=== PATIENT | male | born 1940 | race Caucasian/White ===

== ENCOUNTER 2018-11-17 13:18 | Observation (INO) | payer OTHER ==
--- NOTE | 2018-11-17 13:30 | PDOC ---
History of Present Illness - General Chief Complaint: Syncope/Near Syncope Stated Complaint: Syncope/Near Syncope Time Seen by Provider: 11/17/18 13:23 - History of Present Illness Initial Comments: 11/17/18 13:32 Mr. Olsen is an 78 yo male w/ no known pmh who presents for evaluation after syncopal episode earlier today. Patient reports he was in his previous state of health until he had some stomach pain with diarrhea and large bowel movement. Patient had syncopal episode preceded by some room spinning while on the toilet and was found by . Did not hit his head or otherwise fall. Currently alert and oriented. No interventions done via EMS. Patient reports he feels his normal self at this time. The patient denies chest pain, shortness of breath, and headache. Denies fever, chills, nausea, vomit, and constipation. Denies dysuria, frequency, urgency and hematuria. Past History - Past Medical History Allergies/Adverse Reactions: Allergies Allergy/AdvReac Type Severity Reaction Status Date / Time No Known Allergies Allergy Unverified 11/17/18 13:33 Home Medications: Ambulatory Orders Dutasteride/Tamsulosin HCl [Demetrice 0.5-0.4 Mg Capsule] 1 each PO 11/18/13 Review of Systems - Review of Systems Comments:: 11/17/18 13:36 GENERAL/CONSTITUTIONAL: No fever or chills. No weakness. HEAD, EYES, EARS, NOSE AND THROAT: No change in vision. No ear pain or discharge. No sore throat. CARDIOVASCULAR: No chest pain or shortness of breath RESPIRATORY: No cough, wheezing, or hemoptysis. GASTROINTESTINAL: No nausea, vomiting, diarrhea or constipation. GENITOURINARY: No dysuria, frequency, or change in urination. MUSCULOSKELETAL: No joint or muscle swelling or pain. No neck or back pain. SKIN: No rash NEUROLOGIC: +Dizziness w/ syncopal episode as described. No headache, or change in strength/sensation. ENDOCRINE: No increased thirst. No abnormal weight change HEMATOLOGIC/LYMPHATIC: No anemia, easy bleeding, or history of blood clots. ALLERGIC/IMMUNOLOGIC: No hives or skin allergy. *Physical Exam - Physical Exam Comments: 11/17/18 13:36 GENERAL: Awake, alert, and fully oriented, in no acute distress HEAD: No signs of trauma, normocephalic, atraumatic EYES: PERRLA, EOMI, sclera anicteric, conjunctiva clear ENT: Auricles normal inspection, hearing grossly normal, nares patent, oropharynx clear without exudates. Moist mucosa NECK: Normal ROM, supple, no lymphadenopathy, JVD, or masses LUNGS: No distress, speaks full sentences, clear to auscultation bilaterally HEART: Regular rate and rhythm, normal S1 and S2, no murmurs, rubs or gallops, peripheral pulses normal and equal bilaterally. ABDOMEN: Soft, nontender, normoactive bowel sounds. No guarding, no rebound. No masses EXTREMITIES: Normal inspection, Normal range of motion, no edema. No clubbing or cyanosis. NEUROLOGICAL: Cranial nerves II through XII grossly intact. Normal speech, normal gait, no focal sensorimotor deficits SKIN: Warm, Dry, normal turgor, no rashes or lesions noted. Heart Score/ECG Review - History History: Highly suspicious - Electrocardiogram EKG: Normal - Age Age: >/= 65 - Risk Factors Risk Factors Heart Score: No Hx Hypercholesterolemia, No Hx Hypertension, No Hx Diabetes, No Smoking History, No Positive family hx of cardiac disease, No Hx Obesity Based on the list above the patient has:: No risk factors known - Troponin Troponin: </= normal limit - Score Heart Score - Total: 4 ED Treatment Course - LABORATORY CBC & Chemistry Diagram: 11/17/18 13:45 11/17/18 13:45 Medical Decision Making - Medical Decision Making 11/17/18 15:23 Mr. Olsen is an 78 yo male w/ no pmh who presents for evaluation of symptoms of syncope. Patient evaluated with labs as below as well as EKG and CXR. Patient labs grossly wnl as below. EKG significant for mild bradycardia only. Will admit patient for observation and cardiology evaluation. Laboratory Results - last 24 hr 11/17/18 11/17/18 13:45 13:45 WBC 6.4 RBC 4.77 Hgb 14.1 Hct 43.1 MCV 90.3 MCH 29.6 MCHC 32.8 RDW 13.6 Plt Count 187 MPV 7.9 Absolute Neuts (auto) 3.5 Neutrophils % 55.4 Lymphocytes % 30.4 Monocytes % 8.7 Eosinophils % 5.1 H Basophils % 0.4 Nucleated RBC % 0 Sodium 135 L Potassium 4.2 Chloride 104 Carbon Dioxide 26 Anion Gap 5 L BUN 18 Creatinine 0.8 Creat Clearance w eGFR 93.01 Random Glucose 104 Calcium 9.1 Total Bilirubin 0.4 AST 15 ALT 24 Alkaline Phosphatase 69 Creatine Kinase 92 Troponin I < 0.02 Total Protein 7.7 Albumin 3.8 *DC/Admit/Observation/Transfer Diagnosis at time of Disposition: Syncope Qualifiers: Syncope type: unspecified Qualified Code(s): R55 - Syncope and collapse - Discharge Dispostion Decision to Admit order: Yes - Referrals Referrals: Camacho Machado MD [Primary Care Provider] - - Patient Instructions - Post Discharge Activity
[2018-11-17] MEDS ORDERED: SODIUM CHLORIDE 1,000 ML IV STA (13:31)
[2018-11-17 14:03] LABS: BASO % 0.4 % (0-2.0); EOS % 5.1 % (0-4.5); HEMATOCRIT 43.1 % (35.4-49); HEMOGLOBIN 14.1 GM/dL (11.7-16.9); LYMPH % 30.4 % (8-40); MCH 29.6 pg (25.7-33.7); MCHC 32.8 g/dl (32.0-35.9); MEAN CELL VOLUME 90.3 fl (80-96); MEAN PLT VOLUME 7.9 fl (7.5-11.1); MONO % 8.7 % (3.8-10.2); NEUT % 55.4 % (42.8-82.8); PLATELET COUNT 187 K/MM3 (134-434); RBC 4.77 M/mm3 (4.00-5.60); RDW 13.6 % (11.9-15.9); WHITE BLOOD COUNT 6.4 K/mm3 (4.0-10.0)
[2018-11-17 14:26] LABS: ALBUMIN 3.8 g/dl (3.4-5.0); ALK PHOS 69 U/L (45-117); ANION GAP 5 MMOL/L (8-16); BILIRUBIN,TOTAL 0.4 mg/dL (0.2-1); BLOOD UREA NITROGEN 18 mg/dL (7-18); CALCIUM 9.1 mg/dL (8.5-10.1); CHLORIDE 104 mmol/L (98-107); CO2 26 mmol/L (21-32); CREATININE 0.8 mg/dL (0.55-1.3); GLUCOSE,RANDOM 104 mg/dL (74-106); POTASSIUM 4.2 mmol/L (3.5-5.1); SGOT/AST 15 U/L (15-37); SGPT/ALT 24 U/L (13-61); SODIUM 135 mmol/L (136-145); TOT PROT 7.7 g/dl (6.4-8.2)
--- NOTE | 2018-11-17 14:37 | PDOC ---
Documentation entered by Glen Ortez SCRIBE, acting as scribe for Leanne Andrew MD. Leanne Andrew MD: This documentation has been prepared by the fuadibePérez Daniel, SCRIBE, under my direction and personally reviewed by me in its entirety. I confirm that the documentation accurately reflects all work, treatment, procedures, and medical decision making performed by me. Attending Attestation - Resident Resident Name: Darci Raygoza - ED Attending Attestation I have performed the following: I have examined & evaluated the patient, The case was reviewed & discussed with the resident, I agree w/resident's findings & plan, Exceptions are as noted - HPI HPI: 11/17/18 14:03 The patient is an 78 year old male with no past medical history here today for evaluation of a syncopal episode. The patient reports that that he diarrhea and abdominal pain this morning. Patients reports finding the patient passed out on this toilet. Patient currently has no complaints. Patient denies headache, lightheadedness. Denies fever, chills. Denies chest pain, shortness of breath. Denies nausea, vomiting, diarrhea, abdominal pain. Allergies: NKA PCP: Camacho Machado - Physicial Exam PE: GENERAL: Awake, alert, and fully oriented, in no acute distress HEAD: No signs of trauma EYES: PERRLA, EOMI, sclera anicteric, conjunctiva clear ENT: Auricles normal inspection, hearing grossly normal, nares patent, oropharynx clear without exudates. Dry mucosa NECK: Normal ROM, supple, no lymphadenopathy, JVD, or masses LUNGS: Breath sounds equal, clear to auscultation bilaterally. No wheezes, and no crackles HEART: Bradycardic with regular rhythm, normal S1 and S2, no murmurs, rubs or gallops ABDOMEN: Soft, nontender, normoactive bowel sounds. No guarding, no rebound. No masses EXTREMITIES: Normal range of motion, no edema. No clubbing or cyanosis. No cords , erythema, or tenderness NEUROLOGICAL: Cranial nerves II through XII grossly intact. Normal speech, normal gait. Motor and sensation intact SKIN: Warm, Dry, normal turgor, no rashes or lesions noted. - Medical Decision Making Pt with syncopal event at home, will obtain labs, CXR, and admit in light of his risk factors.
--- NOTE | 2018-11-17 15:08 | EKG ---
Test Reason : Blood Pressure : / mmHG Vent. Rate : 055 BPM Atrial Rate : 055 BPM P-R Int : 186 ms QRS Dur : 070 ms QT Int : 410 ms P-R-T Axes : 039 -11 010 degrees QTc Int : 392 ms SINUS BRADYCARDIA OTHERWISE NORMAL ECG WHEN COMPARED WITH ECG OF 13-JUN-2017 09:50, NO SIGNIFICANT CHANGE WAS FOUND Confirmed by AFIA BOYKIN MD ([id number]) on 11/17/2018 3:08:33 PM Referred By: Confirmed By:AFIA BOYKIN MD
[2018-11-17] MEDS ORDERED: ACETAMINOPHEN 325 MG TABLET (FP) PO PRN (17:48)
[2018-11-17] MEDS ORDERED: PANTOPRAZOLE 40 MG TABLET (FP) ONE (18:34)
[2018-11-17] MEDS: PANTOPRAZOLE 40 MG TABLET (FP) PO SCH (18:37)
[2018-11-17] MEDS: DOCUSATE SODIUM 100 MG CAPSULE (FP) PO SCH (22:44)
[2018-11-17] MEDS: SENNOSIDES 8.6MG TABLET (FP) PO SCH (22:44)
[2018-11-17] MEDS ORDERED: HEPARIN NA (PORCINE) 5,000 UNITS/ML 1ML VIAL ONE (23:23)
[2018-11-17] MEDS: HEPARIN NA (PORCINE) 5,000 UNITS/ML 1ML VIAL SQ SCH (23:30)
--- NOTE | 2018-11-17 23:48 | HP ---
Admitting History and Physical - Primary Care Physician PCP: Camacho Machado - Admission Chief Complaint: syncope History of Present Illness: 78 y/o M with BPH presents to ED for evaluation after he syncopized while having bowel movement. Pt reports diffuse crampy abdominal pain which resulted in loose stool, while on the toilet he experienced dizziness and his noted that pt was slumped over backwards and was unresponsive but breathing. As per , pt remained in this state for at least 3min and slowly emerged without any intervention. Mr. Olsen did not fall or hit head during this episode. Pt denies CP/SOB/palpitations. activated EMS and pt was transported to [facility] for evaluation. In ED labs and EKG were normal. Vitals: HR 64bpm, BP 135/87, T 98.0, RR 16, O 2 sat 100% . Pt admitted for observation on telemetry. History Source: Patient, Family Member Limitations to Obtaining History: No Limitations - Past Medical History Renal/: Yes: BPH - Past Surgical History Additional Past Surgical History: Right shoulder tendon repair - Smoking History Smoking history: Never smoked Have you smoked in the past 12 months: No - Alcohol/Substance Use Hx Alcohol Use: No History of Substance Use: reports: None - Social History Usual Living Arrangement: Yes: With Spouse ADL: Independent History of Recent Travel: No Home Medications - Allergies Allergies/Adverse Reactions: Allergies Allergy/AdvReac Type Severity Reaction Status Date / Time No Known Allergies Allergy Unverified 11/17/18 13:33 - Home Medications Home Medications: Ambulatory Orders Dutasteride/Tamsulosin HCl [Demetrice 0.5-0.4 Mg Capsule] 1 each PO 11/18/13 Family Disease History - Family Disease History Family Disease History: Other: Father ( (80+) natural causes), Mother ( (80+) natural causes) Review of Systems - Review of Systems Constitutional: reports: Diaphoresis Eyes: reports: No Symptoms HENT: reports: No Symptoms Neck: reports: No Symptoms Cardiovascular: reports: No Symptoms Respiratory: reports: No Symptoms Gastrointestinal: reports: Abdominal Pain, Indigestion Genitourinary: reports: No Symptoms Breasts: reports: No Symptoms Reported Musculoskeletal: reports: No Symptoms Integumentary: reports: No Symptoms Neurological: reports: Dizziness, Syncope Endocrine: reports: No Symptoms Hematology/Lymphatic: reports: No Symptoms Psychiatric: reports: No Symptoms Physical Examination Vital Signs: Vital Signs Temperature 98.0 F 11/17/18 23:31 Pulse Rate 80 11/17/18 23:32 Respiratory Rate 16 11/17/18 23:31 Blood Pressure 150/90 11/17/18 23:31 O2 Sat by Pulse Oximetry (%) 100 11/17/18 23:32 Constitutional: Yes: Well Nourished, No Distress, Calm Eyes: Yes: Conjunctiva Clear, EOM Intact, PERRL HENT: Yes: Atraumatic, Normocephalic Neck: Yes: Supple, Trachea Midline Cardiovascular: Yes: Regular Rate and Rhythm Respiratory: Yes: Regular, CTA Bilaterally Gastrointestinal: Yes: Normal Bowel Sounds, Soft ...Rectal Exam: Yes: Deferred Musculoskeletal: Yes: WNL Extremities: Yes: WNL Edema: No Peripheral Pulses WNL: Yes Peripheral Pulses: Left Radial: 2+, Right Radial: 2+, Left Doralis Pedis: 2+, Right Dorsalis Pedis: 2+ Integumentary: Yes: WNL Neurological: Yes: Alert, Oriented, Cran Nerves II-XII Intact ...Motor Strength: WNL Psychiatric: Yes: WNL, Alert, Oriented Labs: CBC, BMP 11/17/18 13:45 11/17/18 13:45 Imaging - Results Chest X-ray: Report Reviewed (CXR 11/17/2018 Impression: Weak inspiration with prominent mediastinum and some minimal atelectasis and pleural reaction at the left base. The bones and soft tissues are intact. Read Devon Leroy MD) EKG: Report Reviewed (EKG 11/17/2018 SB 55bpm. WILLIAM 186ms, QT/QTc 410/392ms.) Problem List - Problems (1) BPH (benign prostatic hyperplasia) Assessment/Plan: Demetrice Non-formulary -flomax 0.4 daily -dutasteride 0.5mg daily Code(s): N40.0 - BENIGN PROSTATIC HYPERPLASIA WITHOUT LOWER URINRY TRACT SYMP (2) Prophylactic measure Assessment/Plan: heparin BID OOB to chair Ambulate as tolerated Colace and senna Code(s): Z29.9 - ENCOUNTER FOR PROPHYLACTIC MEASURES, UNSPECIFIED (3) Syncope Assessment/Plan: observe overnight on tele neuro consulted, pt can be d/kim home with output neuro follow up if stable in AM start ASA 81mg pt has outpt cards with whom he can follow up echo ordered Code(s): R55 - SYNCOPE AND COLLAPSE Qualifiers: Syncope type: unspecified Qualified Code(s): R55 - Syncope and collapse Assessment/Plan DISPO: home tomorrow if remains stable Code status: Full Visit type - Emergency Visit Emergency Visit: Yes ED Registration Date: 11/17/18 Care time: The patient presented to the Emergency Department on the above date and was hospitalized for further evaluation of their emergent condition. - New Patient This patient is new to me today: Yes Date on this admission: 11/17/18 - Critical Care Critical Care patient: No
[2018-11-18 06:33] LABS: HEMATOCRIT 39.5 % (35.4-49); MCH 29.6 pg (25.7-33.7); MCHC 32.9 g/dl (32.0-35.9); MEAN CELL VOLUME 89.9 fl (80-96); MEAN PLT VOLUME 8.5 fl (7.5-11.1); PLATELET COUNT 168 K/MM3 (134-434); RBC 4.39 M/mm3 (4.00-5.60); RDW 13.4 % (11.9-15.9); WHITE BLOOD COUNT 5.7 K/mm3 (4.0-10.0)
[2018-11-18 07:11] LABS: ALBUMIN 3.1 g/dl (3.4-5.0); ALK PHOS 57 U/L (45-117); ANION GAP 6 MMOL/L (8-16); BILIRUBIN,TOTAL 0.5 mg/dL (0.2-1); BLOOD UREA NITROGEN 14 mg/dL (7-18); CALCIUM 8.4 mg/dL (8.5-10.1); CHLORIDE 111 mmol/L (98-107); CO2 24 mmol/L (21-32); CREATININE 0.8 mg/dL (0.55-1.3); GLUCOSE,RANDOM 90 mg/dL (74-106); MAGNESIUM 2.4 mg/dL (1.8-2.4); PHOSPHOROUS 3.3 mg/dL (2.5-4.9); SGOT/AST 13 U/L (15-37); SGPT/ALT 19 U/L (13-61); SODIUM 141 mmol/L (136-145); TOT PROT 6.4 g/dl (6.4-8.2)
[2018-11-18] MEDS: TAMSULOSIN HCL 0.4 MG CAP PO SCH (09:02)
[2018-11-18] MEDS: DUTASTERIDE 0.5 MG CAP (FP) PO SCH (10:00)
[2018-11-18] MEDS: DOCUSATE SODIUM 100 MG CAPSULE (FP) PO SCH ×2 (10:00→21:25)
[2018-11-18] MEDS: ASPIRIN COATED 81 MG TABLET.EC PO SCH (10:00)
[2018-11-18] MEDS: HEPARIN NA (PORCINE) 5,000 UNITS/ML 1ML VIAL SQ SCH ×2 (10:00→21:25)
[2018-11-18] MEDS: PANTOPRAZOLE 40 MG TABLET (FP) PO SCH (10:00)
--- NOTE | 2018-11-18 11:38 | EKG ---
Test Reason : Blood Pressure : / mmHG Vent. Rate : 069 BPM Atrial Rate : 069 BPM P-R Int : 188 ms QRS Dur : 072 ms QT Int : 372 ms P-R-T Axes : 039 -06 008 degrees QTc Int : 398 ms NORMAL SINUS RHYTHM WITH SINUS ARRHYTHMIA NORMAL ECG WHEN COMPARED WITH ECG OF 17-NOV-2018 13:47, NO SIGNIFICANT CHANGE WAS FOUND Confirmed by Ramon Velez MD ([id number]) on 11/18/2018 11:38:24 AM Referred By: Confirmed By:Ramon Velez MD
--- NOTE | 2018-11-18 11:50 | PN ---
Progress Note (short form) - Note Progress Note: Pt examined in ER at bedside pt has no complaints' no dizziness, chest pain, palpitations chronic constipation was straining during bm when he felt lightheaded, faint-- was aware of his surroundings Vital Signs - 24 hr 11/17/18 11/17/18 11/17/18 13:20 16:56 17:48 Temperature 97.7 F Pulse Rate 63 Pulse Rate [ 100 H 64 Apical] Respiratory 16 16 16 Rate Blood Pressure 146/83 Blood Pressure 130/80 135/87 [Left Arm] O2 Sat by Pulse 100 100 100 Oximetry (%) 11/17/18 11/17/18 11/18/18 23:31 23:32 05:33 Temperature 98.0 F 98.4 F Pulse Rate 80 Pulse Rate [ 80 62 Apical] Respiratory 16 16 Rate Blood Pressure Blood Pressure 150/90 132/80 [Left Arm] O2 Sat by Pulse 100 100 97 Oximetry (%) 11/18/18 07:18 Temperature 98.1 F Pulse Rate Pulse Rate [ 62 Apical] Respiratory 18 Rate Blood Pressure Blood Pressure 144/90 [Left Arm] O2 Sat by Pulse 99 Oximetry (%) Current Medications Generic Name Dose Route Start Last Admin Trade Name Freq PRN Reason Stop Dose Admin Acetaminophen 650 mg 11/17/18 17:48 Tylenol - PO Q6H PRN PAIN LEVEL 4 - 6 Aspirin 81 mg 11/18/18 10:00 11/18/18 10:00 Ecotrin - PO 81 mg DAILY MASSIEL Administration Docusate Sodium 100 mg 11/17/18 22:00 11/18/18 10:00 Colace - PO 100 mg BID MASSIEL Administration Dutasteride 0.5 mg 11/18/18 10:00 11/18/18 10:00 Avodart - PO 0.5 mg DAILY MASSIEL Administration Heparin Sodium (Porcine) 5,000 unit 11/17/18 22:00 11/18/18 10:00 Heparin - SQ 5,000 unit BID MASSIEL Administration Pantoprazole Sodium 40 mg 11/17/18 18:00 11/18/18 10:00 Protonix - PO 40 mg DAILY MASSIEL Administration Senna 2 tab 11/17/18 22:00 11/17/18 22:44 Senna - PO Not Given HS MASSIEL Tamsulosin HCl 0.4 mg 11/18/18 08:30 11/18/18 09:02 Flomax - PO 0.4 mg DAILY@0830 [facility] Administration Laboratory Results - last 24 hr 11/17/18 11/17/18 11/18/18 13:45 13:45 05:30 WBC 6.4 5.7 RBC 4.77 4.39 Hgb 14.1 13.0 Hct 43.1 39.5 MCV 90.3 89.9 MCH 29.6 29.6 MCHC 32.8 32.9 RDW 13.6 13.4 Plt Count 187 168 MPV 7.9 8.5 Absolute Neuts (auto) 3.5 Neutrophils % 55.4 Lymphocytes % 30.4 Monocytes % 8.7 Eosinophils % 5.1 H Basophils % 0.4 Nucleated RBC % 0 Sodium 135 L Potassium 4.2 Chloride 104 Carbon Dioxide 26 Anion Gap 5 L BUN 18 Creatinine 0.8 Creat Clearance w eGFR 93.01 Random Glucose 104 Hemoglobin A1c % Calcium 9.1 Phosphorus Magnesium Total Bilirubin 0.4 AST 15 ALT 24 Alkaline Phosphatase 69 Creatine Kinase 92 Troponin I < 0.02 Total Protein 7.7 Albumin 3.8 TSH 11/18/18 11/18/18 05:30 05:30 WBC RBC Hgb Hct MCV MCH MCHC RDW Plt Count MPV Absolute Neuts (auto) Neutrophils % Lymphocytes % Monocytes % Eosinophils % Basophils % Nucleated RBC % Sodium 141 Potassium 4.0 Chloride 111 H Carbon Dioxide 24 Anion Gap 6 L BUN 14 Creatinine 0.8 Creat Clearance w eGFR 93.01 Random Glucose 90 Hemoglobin A1c % 6.0 Calcium 8.4 L Phosphorus 3.3 Magnesium 2.4 Total Bilirubin 0.5 AST 13 L ALT 19 Alkaline Phosphatase 57 Creatine Kinase 69 Troponin I < 0.02 Total Protein 6.4 Albumin 3.1 L TSH 2.05
--- NOTE | 2018-11-18 13:53 | CON.CARD ---
Consult Consult Specialty:: Cardiology Referred by:: Dr. Lukas Lovett Reason for Consultation:: Cardiac evaluation - History of Present Illness Chief Complaint: Syncope History of Present Illness: Patient is an 78 year old male with underlying history of BPH who presents after a syncopal episode while having bowel movement. H experienced dizziness and slumped backwards and was found unresponsive. He did not hit his head during the episode. Currently he is awake and alert. He denies chest pain, SOB or palpitations. He denies paroxysmal nocturnal dyspnea or orthopnea. He denies fever or chills. He denies nausea, vomiting, diarrhea or abdominal pain. He denies headache or lightheadedness at this time. He denies prior episode of syncope - History Source History Provided By: Patient, Medical Record Limitations to Obtaining History: No Limitations - Past Medical History Renal/: Yes: BPH - Alcohol/Substance Use Hx Alcohol Use: No History of Substance Use: reports: None - Smoking History Smoking history: Never smoked Have you smoked in the past 12 months: No - Social History ADL: Independent History of Recent Travel: No Home Medications - Allergies Allergies/Adverse Reactions: Allergies Allergy/AdvReac Type Severity Reaction Status Date / Time No Known Allergies Allergy Unverified 11/17/18 13:33 - Home Medications Home Medications: Ambulatory Orders Dutasteride/Tamsulosin HCl [Demetrice 0.5-0.4 Mg Capsule] 1 each PO DAILY 11/18/13 Family Disease History - Family Disease History Family Disease History: Other: Father ( (80+) natural causes), Mother ( (80+) natural causes) Review of Systems - Review of Systems Constitutional: denies: Chills, Fever Cardiovascular: denies: Chest Pain, Palpitations, Shortness of Breath Respiratory: denies: Cough, Hemoptysis, Orthopnea, PND, SOB, SOB on Exertion Gastrointestinal: denies: Abdominal Pain, Constipation, Diarrhea, Melena, Nausea , Rectal Bleeding, Vomiting Musculoskeletal: denies: Back Pain, Joint Pain Neurological: reports: Dizziness, Syncope. denies: Headache, Seizure Vital Signs: Vital Signs Temperature 98.1 F 11/18/18 07:18 Pulse Rate 62 11/18/18 07:18 Respiratory Rate 18 11/18/18 07:18 Blood Pressure 144/90 11/18/18 07:18 O2 Sat by Pulse Oximetry (%) 99 11/18/18 07:18 Eyes: Yes: PERRL HENT: Yes: Atraumatic Neck: Yes: Supple Respiratory: Yes: CTA Bilaterally Gastrointestinal: Yes: Normal Bowel Sounds, Soft. No: Tenderness Cardiovascular: Yes: Regular Rate and Rhythm JVD: No Carotid Bruit: No PMI: Non-Displaced Heart Sounds: Yes: S1, S2 Edema: No - Other Data Labs, Other Data: CBC, BMP 11/18/18 05:30 11/18/18 05:30 Troponin, BNP 11/17/18 11/18/18 13:45 05:30 Troponin I < 0.02 < 0.02 NSR normal ECG Echo: Pending Imaging - Results Chest X-ray: Report Reviewed (Unremarkable) EKG: Report Reviewed Problem List - Problems (1) BPH (benign prostatic hyperplasia) Code(s): N40.0 - BENIGN PROSTATIC HYPERPLASIA WITHOUT LOWER URINRY TRACT SYMP (2) Syncope Code(s): R55 - SYNCOPE AND COLLAPSE Qualifiers: Syncope type: unspecified Qualified Code(s): R55 - Syncope and collapse Assessment/Plan 1. Syncope, etiology to be determined, probable vaso-vagal 2. History of BPH PLAN: 1. Carotid Doppler negative 2. Troponins are negative 3. Echocardiography to assess LV/RV and valvular function 4. Check orthostasis Further plans are to follow If all of the above negative, may discharge home Kee Meraz MD
--- NOTE | 2018-11-18 14:15 | CON.NEURO ---
Consult Consult Specialty:: janet Reason for Consultation:: syncopy - History of Present Illness History of Present Illness: syncopy this is a very pleasant man with the present medical history significant for Coronary artery disease Benign prostatic hypertrophy Hypertension Patient was at his usual status of health until last night when he was on the toilet seat patient had a syncopal event. No reports of seizure-like activity staring episode of abnormal behavior postictal confusion Patient was seen on telemetry Patient was admitted for monitoring Noted that the patient is on Flomax No report of any cardiac arrhythmia since admission - History Source History Provided By: Patient - Past Medical History Renal/: Yes: BPH - Alcohol/Substance Use Hx Alcohol Use: No History of Substance Use: reports: None - Smoking History Smoking history: Never smoked Have you smoked in the past 12 months: No - Social History ADL: Independent History of Recent Travel: No Home Medications - Allergies Allergies/Adverse Reactions: Allergies Allergy/AdvReac Type Severity Reaction Status Date / Time No Known Allergies Allergy Unverified 11/17/18 13:33 - Home Medications Home Medications: Ambulatory Orders Aspirin Coated [Ecotrin -] 81 mg PO DAILY #30 tablet.ec 11/19/18 Dutasteride [Avodart] 0.5 mg PO DAILY #30 cap 11/19/18 Family Disease History - Family Disease History Family History: Denies Family Disease History: Other: Father ( (80+) natural causes), Mother ( (80+) natural causes) Review of Systems - Review of Systems Constitutional: reports: No Symptoms Eyes: reports: No Symptoms Neurological: reports: Headache, Incoordination Physical Exam-Neuro Vital Signs: Vital Signs Temperature 98.1 F 11/18/18 07:18 Pulse Rate 62 11/18/18 07:18 Respiratory Rate 18 11/18/18 07:18 Blood Pressure 144/90 11/18/18 07:18 O2 Sat by Pulse Oximetry (%) 99 11/18/18 07:18 Constitutional: Yes: Well Nourished Neck: Yes: WNL Cardiovascular: Yes: WNL Labs: CBC, BMP 11/18/18 05:30 11/18/18 05:30 - Neuro Exam Level Of Consciousness: Yes: Oriented to Person, Oriented to Place, Oriented to Time Eyes: Yes: PERRL, PERRLA Speech: WNL Dominant Hand: Right Cranial Nerves II-XII Intact: Yes Gag: Present DTR's: 1+ Left Bicep, 1+ Right Bicep, 1+ Left Tricep, 1+ Right Tricep, 1+ Left Brachioradialis Motor Strength: 3/5: Left Arm, Right Arm, Left Leg, Right Leg Gait: Deferred Problem List - Problems (1) Syncope Assessment/Plan: vasovagal syncope associated with the usage of the Flomax No evidence of TIA Rule out cardiac arrhythmia 1. Suggest to stop the Flomax 2. Check orthostasis every shift 3. Holter monitor Thank you very much for referring this patient for neurological consultation we' ll follow the patient during the admission Code(s): R55 - SYNCOPE AND COLLAPSE Qualifiers: Syncope type: unspecified Qualified Code(s): R55 - Syncope and collapse
--- NOTE | 2018-11-18 15:34 | ECHO ---
Name: KWAN MERCADO Exam:Adult Echocardiogram Study Date: 11/18/2018 12:34 PM Age: 78 yrs Reason For Study: SYNCOPE Height: 66 in Weight: 160 lb BSA: 1.8 m2 MMode/2D Measurements & Calculations IVSd: 0.88 cm Ao root diam: 3.2 cm LVIDd: 4.5 cm LA dimension: 3.7 cm LVIDs: 3.2 cm LVPWd: 0.78 cm EDV(Teich): 94.2 ml LVOT diam: 2.0 cm ESV(Teich): 42.3 ml Doppler Measurements & Calculations MV E max ruben: 53.3 cm/sec Ao V2 max: 153.6 cm/sec MV A max ruben: 89.8 cm/sec Ao max P.4 mmHg MV E/A: 0.59 MV dec time: 0.20 sec PIO(V,D): 1.2 cm2 LV V1 max P.5 mmHg MR max ruben: 458.2 cm/sec LV V1 mean P.0 mmHg MR max P.0 mmHg LV V1 max: 62.0 cm/sec LV V1 mean: 49.3 cm/sec LV V1 VTI: 13.2 cm SV(LVOT): 40.5 ml TR max ruben: 229.9 cm/sec TR max P.2 mmHg PA V2 max: 85.5 cm/sec PI end-d ruben: 124.9 cm/sec PA max P.9 mmHg Med Peak E' Ruben: 6.8 cm/sec Med E/e': 7.8 Lat Peak E' Ruben: 8.6 cm/sec Lat E/e': 6.2 Procedure A complete two-dimensional transthoracic echocardiogram was performed (2D, M-mode, Doppler and color flow Doppler). Left Ventricle The left ventricular size, thickness and function are normal. The left ventricular ejection fraction is normal. Ejection Fraction = 60%. The transmitral spectral Doppler flow pattern is suggestive of impai red LV relaxation. The left ventricular wall motion is normal. Right Ventricle The right ventricle is normal in size and function. Atria Normal left and right atrial size and function. A prominent eustachian valve is noted. Mitral Valve There is mild mitral annular calcification. There is trace mitral regurgitation. Tricuspid Valve The tricuspid valve is normal in structure and function. There is Trace to mild tricuspid regurgitati on. Right ventricular systolic pressure is 25 mmhg. Aortic Valve There is mild aortic valve thickening. Trace aortic regurgitation. Pulmonic Valve The pulmonic valve is normal in structure and function. Trace to mild pulmonic valvular regurgitation . Great Vessels The aortic root is normal size. Pericardium/Pleura There is no pericardial effusion. There is no pleural effusion. Interpretation Summary The left ventricular size, thickness and function are normal Ejection Fraction = 60%. The right ventricle is normal in size and function. There is mild mitral annular calcification. There is trace mitral regurgitation. There is Trace to mild tricuspid regurgitation. Right ventricular systolic pressure is 25 mmhg. There is mild aortic valve thickening. Trace aortic regurgitation. Trace to mild pulmonic valvular regurgitation. MD Ramon Velez 11/18/2018 03:33 PM
[2018-11-18 18:54] VITALS: BMI 25.6
[2018-11-18] MEDS: SENNOSIDES 8.6MG TABLET (FP) PO SCH (21:25)
[2018-11-19] MEDS: TAMSULOSIN HCL 0.4 MG CAP PO SCH (09:14)
[2018-11-19] MEDS: DOCUSATE SODIUM 100 MG CAPSULE (FP) PO SCH (09:16)
[2018-11-19] MEDS: PANTOPRAZOLE 40 MG TABLET (FP) PO SCH (09:16)
[2018-11-19] MEDS: ASPIRIN COATED 81 MG TABLET.EC PO SCH (09:16)
[2018-11-19] MEDS: HEPARIN NA (PORCINE) 5,000 UNITS/ML 1ML VIAL SQ SCH (09:17)
[2018-11-19] MEDS: DUTASTERIDE 0.5 MG CAP (FP) PO SCH (09:17)
--- NOTE | 2018-11-19 10:38 | DS ---
Physical Examination Vital Signs: Vital Signs Temperature 97.6 F 11/19/18 06:00 Pulse Rate 60 11/19/18 06:00 Respiratory Rate 18 11/19/18 06:00 Blood Pressure 153/98 11/19/18 06:00 O2 Sat by Pulse Oximetry (%) 99 11/18/18 21:00 Labs: CBC, BMP 11/18/18 05:30 11/18/18 05:30 Discharge Summary Reason For Visit: SYNCOPE Current Active Problems BPH (benign prostatic hyperplasia) (Acute) Prophylactic measure (Acute) Syncope (Acute) - Instructions - Home Medications Comprehensive Discharge Medication List: Ambulatory Orders Dutasteride/Tamsulosin HCl [Demetrice 0.5-0.4 Mg Capsule] 1 each PO DAILY 11/18/13
[2018-11-19 11:45] VITALS: BP 148/96; PULSE 68; TEMP 98
--- NOTE | 2018-11-19 12:16 | PN ---
Progress Note, Physician History of Present Illness: No further near or true syncope. No significant events on telemetry. - Current Medication List Current Medications: Active Medications Acetaminophen (Tylenol -) 650 mg PO Q6H PRN PRN Reason: PAIN LEVEL 4 - 6 Aspirin (Ecotrin -) 81 mg PO DAILY [facility] Last Admin: 11/19/18 09:16 Dose: 81 mg Docusate Sodium (Colace -) 100 mg PO BID [facility] Last Admin: 11/19/18 09:16 Dose: 100 mg Dutasteride (Avodart -) 0.5 mg PO DAILY [facility] Last Admin: 11/19/18 09:17 Dose: Not Given Heparin Sodium (Porcine) (Heparin -) 5,000 unit SQ BID [facility] Last Admin: 11/19/18 09:17 Dose: 5,000 unit Pantoprazole Sodium (Protonix -) 40 mg PO DAILY [facility] Last Admin: 11/19/18 09:16 Dose: 40 mg Senna (Senna -) 2 tab PO HS [facility] Last Admin: 11/18/18 21:25 Dose: 2 tab - Objective Vital Signs: Vital Signs Temperature 98.0 F 11/19/18 10:00 Pulse Rate 68 11/19/18 10:00 Respiratory Rate 18 11/19/18 10:00 Blood Pressure 148/96 11/19/18 10:00 O2 Sat by Pulse Oximetry (%) 99 11/19/18 10:00 Constitutional: Yes: No Distress, Calm Neck: Yes: Supple Cardiovascular: Yes: Regular Rate and Rhythm Respiratory: Yes: Regular, CTA Bilaterally Gastrointestinal: Yes: Normal Bowel Sounds, Soft Edema: No Labs: CBC, BMP 11/18/18 05:30 11/18/18 05:30 - ....Imaging EKG: Report Reviewed (Tele: NSR no sig pauses) Problem List - Problems (1) BPH (benign prostatic hyperplasia) Code(s): N40.0 - BENIGN PROSTATIC HYPERPLASIA WITHOUT LOWER URINRY TRACT SYMP Qualifiers: Lower urinary tract symptom detail: unspecified (2) Syncope Code(s): R55 - SYNCOPE AND COLLAPSE Qualifiers: Syncope type: vasovagal syncope Qualified Code(s): R55 - Syncope and collapse Assessment/Plan 11/18/2018 Echocardiography: Normal LV and RV size and fxn, tr MR, tr-mild TR, tr-mild NM, RVSP 25 mmHg 11/18/2018 Carotid US: No stenosis 11/18/2018 HCT: No acute changes 1. Micturition/situational syncope 2. History of BPH PLAN: 1. May d/c home with advice on abortive maneuvers once prodromal sxs have been experienced 2. Change Flomax to nightly administration
== END 2018-11-19 13:41 | disposition home or self-care (01) ==
LOC: JER 13:18 → JERBED 15:27 → J4S 11-18 16:36
PROVIDERS: ADMIT Internal Medicine; ATTEND Internal Medicine
PROC: 3E0337Z Introduction of Electrolytic and Water Balance Substance into Peripheral Vein, Percutaneous Approach (ICD-10-PCS; principal; 2018-11-17)
PROC: 3E013GC Introduction of Other Therapeutic Substance into Subcutaneous Tissue, Percutaneous Approach (ICD-10-PCS; 2018-11-17)
DX: R55 Syncope and collapse (principal); N40.0 Benign prostatic hyperplasia without lower urinary tract symptoms; Z29.9 Encounter for prophylactic measures, unspecified
CPT/HCPCS: 36415; 70450-TC; 71045-TC-FY; 80053; 82550; 83036; 83735; 84100; 84443; 84484; 85025; 85027; 93005; 93010; 93306-TC; 93880-TC; 99285-25; G0378; J1644; J7030

== ENCOUNTER 2023-03-31 11:27 | Emergency (ER) | payer OTHER ==
[2023-03-31 11:34] VITALS: BMI 23.5
[2023-03-31] MEDS ORDERED: morphine CARPU-JECT 4 MG/1 ML DISP.SYRIN IVPUSH ONE (12:23)
[2023-03-31] MEDS ORDERED: morphine SULFATE 4 MG/ML VIAL ONE (12:34)
[2023-03-31 13:06] LABS: BASO % 0.1 % (0-2.0); EOS % 0.1 % (0-4.5); HEMATOCRIT 39.9 % (35.4-49); HEMOGLOBIN 13.5 GM/dL (11.7-16.9); LYMPH % 5.1 % (8-40); MCH 29.7 pg (25.7-33.7); MCHC 33.9 g/dl (32.0-35.9); MEAN CELL VOLUME 87.6 fl (80-96); MEAN PLT VOLUME 7.7 fl (7.5-11.1); MONO % 6.2 % (3.8-10.2); NEUT % 88.5 % (42.8-82.8); PLATELET COUNT 149 10^3/uL (134-434); RBC 4.55 M/mm3 (4.00-5.60); WHITE BLOOD COUNT 8.5 K/mm3 (4.0-10.0)
[2023-03-31 13:13] LABS: INR 1.18 (0.83-1.09); PROTHROMBIN TIME (PATIENT) 13.7 SEC (9.7-13.0)
[2023-03-31 13:15] LABS: ACTIVATED PTT 31.6 SECONDS (25.2-36.5)
[2023-03-31 13:29] LABS: CALCIUM 8.5 mg/dL (8.5-10.1)
[2023-03-31 13:30] LABS: ALBUMIN 3.3 g/dl (3.4-5.0); BLOOD UREA NITROGEN 13.2 mg/dL (7-18)
[2023-03-31 13:33] LABS: CREATININE 1.1 mg/dL (0.55-1.3)
[2023-03-31 13:34] LABS: TOT PROT 6.7 g/dl (6.4-8.2)
[2023-03-31 13:35] LABS: BILIRUBIN,TOTAL 0.4 mg/dL (0.2-1)
[2023-03-31 13:49] LABS: ERYTHROCYTE SEDIMENTATION RATE 32 mm/hr (0-20)
[2023-03-31] MEDS ORDERED: LIDOCAINE HCL 1%, 10 MG/ML (50 mL VIAL) SQ ONE (17:07)
[2023-03-31] MEDS ORDERED: LIDOCAINE HCL 1%, 10 MG/ML (20ML VIAL) ONE (17:16)
[2023-03-31] MEDS ORDERED: VANCOMYCIN 1,000 MG in DEXTROSE 5%-WATER - 250 ML IVPB ONE (19:06)
[2023-03-31] MEDS ORDERED: PIPERACILLIN/TAZOB 4.5 GM 4.5 GM in DEXTROSE 5%-WATER 100 ML IVPB ONE (19:06)
[2023-03-31 19:13] LABS: BF WBC & OTHER NUCLEATED CELLS 164462 /mm3
[2023-03-31] MEDS ORDERED: PIPERACILLIN/TAZOB 4.5 GM 4.5 GM/100 ML BAG IVPB ONE (19:54)
[2023-03-31 20:35] LABS: BODY FLUID MONOCYTE 6 %
[2023-03-31] MEDS ORDERED: VANCOMYCIN 1 GRAM (PRE-DOCKED) 1,000 MG/250 ML BAG IVPB ONE (20:44)
[2023-03-31] MEDS ORDERED: ACETAMINOPHEN 1000 MG/100 ML BAG IVPB ONE (21:13)
[2023-03-31] MEDS ORDERED: ACETAMINOPHEN INJECTION 100 ML IVPB ONE (21:18)
[2023-03-31 22:47] VITALS: RESP 16
[2023-03-31] MEDS ORDERED: SODIUM CHLORIDE 0.9% 500 ML INFUS.BAG IV ONE (22:49)
[2023-04-01 00:46] VITALS: BP 154/82; PULSE 78; TEMP 97.9
== END 2023-04-01 00:56 | disposition short-term general hospital (02) ==
LOC: JER 11:27
PROC: 0S9C3ZZ Drainage of Right Knee Joint, Percutaneous Approach (ICD-10-PCS; principal; 2023-03-31)
PROC: 3E03329 Introduction of Other Anti-infective into Peripheral Vein, Percutaneous Approach (ICD-10-PCS; 2023-03-31)
PROC: 3E033GC Introduction of Other Therapeutic Substance into Peripheral Vein, Percutaneous Approach (ICD-10-PCS; 2023-03-31)
PROC: 3E033GC Introduction of Other Therapeutic Substance into Peripheral Vein, Percutaneous Approach (ICD-10-PCS; 2023-03-31)
DX: M25.561 Pain in right knee (principal); M71.21 Synovial cyst of popliteal space [Baker], right knee; M25.461 Effusion, right knee; Z96.652 Presence of left artificial knee joint
CPT/HCPCS: 0241U-QW; 36415; 73562-TC-RT-FY; 80053; 82945; 83615; 84157; 84560; 85025; 85610; 85651; 85730; 86140; 86850; 86900; 86901; 87040; 87070; 87075; 87186; 87205; 89060; 93005; 93010; 93971-TC; 99285-25

== ENCOUNTER 2023-10-03 04:55 | Day surgery (SDC) | payer OTHER ==
[2023-09-26 11:39] VITALS: BMI 25.7
[2023-10-03] MEDS ORDERED: ceFAZolin SODIUM 1 GM VIAL ONE (12:34)
[2023-10-03] MEDS ORDERED: FENTANYL CITRATE/PF 50 MCG/ML VIAL ONE ×2 (12:34→13:28)
[2023-10-03] MEDS ORDERED: PROPOFOL 20 ML ONE (12:34)
[2023-10-03] MEDS ORDERED: MIDAZOLAM HCL 2 MG/2 ML SINGLE DOSE VIAL ONE (12:35)
[2023-10-03] MEDS: ceFAZolin SODIUM 1 GM VIAL IVPB ONE (12:42)
[2023-10-03] MEDS ORDERED: ONDANSETRON 4 MG/2 ML VIAL IVPUSH PRN (13:21)
[2023-10-03] MEDS ORDERED: oxyCODONE HCL 5 MG TABLET PO PRN (13:21)
[2023-10-03] MEDS ORDERED: ACETAMINOPHEN 1000 MG/100 ML BAG IVPB PRN (13:21)
[2023-10-03] MEDS: ACETAMINOPHEN 1000 MG/100 ML BAG IVPB ONE (13:30)
[2023-10-03] MEDS ORDERED: LACTATED RINGERS SOLUTION 1,000 ML IV SCH (13:30)
[2023-10-03 14:33] VITALS: RESP 18
[2023-10-03 15:14] VITALS: BP 146/90; PULSE 60; TEMP 96.9
== END 2023-10-03 15:05 | disposition home or self-care (01) ==
LOC: JASU-SURG 04:55
PROVIDERS: ATTEND Urology
PROC: 0VB08ZX Excision of Prostate, Via Natural or Artificial Opening Endoscopic, Diagnostic (ICD-10-PCS; principal; 2023-10-03 13:00)
DX: C61 Malignant neoplasm of prostate (principal)
CPT/HCPCS: 76942-TC; 88305-TC; 88342-TC; 94760; J0131

== ENCOUNTER 2024-03-05 04:09 | Day surgery (SDC) | payer OTHER ==
[2024-03-03 10:58] VITALS: BMI 27.4
[2024-03-05] MEDS ORDERED: SUCCINYLCHOLINE CHLORIDE 200 MG/10 ML SYRINGE ONE (12:59)
[2024-03-05] MEDS ORDERED: PROPOFOL 40 ML ONE (12:59)
[2024-03-05] MEDS ORDERED: MIDAZOLAM HCL 2 MG/2 ML SINGLE DOSE VIAL ONE ×2 (12:59→14:44)
[2024-03-05] MEDS ORDERED: BACITRACIN ZINC 15 GM TUBE TOPICAL OINTMENT ONE (14:39)
[2024-03-05] MEDS ORDERED: PROPOFOL 20 ML ONE (14:43)
[2024-03-05] MEDS ORDERED: LIDOCAINE HCL/PF 2% SDV 5ML VIAL ONE (14:43)
[2024-03-05] MEDS: ceFAZolin SODIUM 1 GM VIAL IVPB ONE ×2 (15:06→17:35)
[2024-03-05] MEDS: BACITRACIN ZINC 15 GM TUBE TOPICAL OINTMENT TP ONE (17:53)
[2024-03-05] MEDS ORDERED: PHENYLEPHRINE HCL 10 MG/1 ML SINGLE DOSE VIAL ONE ×2 (18:53→19:11)
[2024-03-05] MEDS ORDERED: ACETAMINOPHEN 325 MG TABLET (FP) PO PRN (21:31)
[2024-03-05] MEDS: LACTATED RINGERS SOLUTION 1,000 ML IV SCH (21:45)
[2024-03-06] MEDS: CEFAZOLIN 1 GM in DEXTROSE 5%-WATER - 50 ML IVPB SCH (01:11)
[2024-03-06 02:40] VITALS: RESP 18
[2024-03-06 08:56] LABS: HEMATOCRIT 36.8 % (35.4-49); HEMOGLOBIN 12.2 GM/dL (11.7-16.9); MCH 29.5 pg (25.7-33.7); MCHC 33.2 g/dl (32.0-35.9); MEAN CELL VOLUME 88.9 fl (80-96); MEAN PLT VOLUME 8.3 fl (7.5-11.1); PLATELET COUNT 150 10^3/uL (134-434); RBC 4.14 M/mm3 (4.00-5.60); RDW 13.5 % (11.9-15.9); WHITE BLOOD COUNT 11.2 K/mm3 (4.0-10.0)
[2024-03-06 14:02] VITALS: TEMP 97.5
[2024-03-06 14:03] VITALS: BP 113/75; PULSE 66
== END 2024-03-06 17:15 | disposition home or self-care (01) ==
LOC: JASUSAT 04:09 → JASU-SURG 04:09 → J6S 21:53 → JASUSAT 03-06 17:15
PROVIDERS: ATTEND Urology
PROC: 0V503ZZ Destruction of Prostate, Percutaneous Approach (ICD-10-PCS; principal; 2024-03-05 14:00)
DX: C61 Malignant neoplasm of prostate (principal)
CPT/HCPCS: 55873; C2618; 36415; 85027; 94760; C1769

== ENCOUNTER 2024-03-13 10:47 | Observation (INO) | payer OTHER ==
[2024-03-13] MEDS ORDERED: MORPHINE SULFATE 2 MG/ML SYRINGE ONE (12:10)
[2024-03-13 12:15] LABS: URINE APPEARANCE CLEAR; URINE BILIRUBIN NEGATIVE (NEGATIVE); URINE COLOR RED; URINE GLUCOSE (UA) NEGATIVE (NEGATIVE); URINE KETONE NEGATIVE (NEGATIVE); URINE LEUK ESTERASE NEGATIVE (NEGATIVE); URINE NITRITE NEGATIVE (NEGATIVE); URINE PROTEIN 2+ (NEGATIVE); URINE UROBILINOGEN 0.2 mg/dL (0.2-1.0)
[2024-03-13 12:22] LABS: BASO % 0.1 % (0-2.0); EOS % 1.6 % (0-4.5); HEMATOCRIT 33.9 % (35.4-49); HEMOGLOBIN 11.6 GM/dL (11.7-16.9); LYMPH % 15.1 % (8-40); MCH 29.9 pg (25.7-33.7); MCHC 34.2 g/dl (32.0-35.9); MEAN CELL VOLUME 87.4 fl (80-96); MEAN PLT VOLUME 7.1 fl (7.5-11.1); MONO % 9.8 % (3.8-10.2); NEUT % 73.4 % (42.8-82.8); PLATELET COUNT 159 10^3/uL (134-434); RBC 3.88 M/mm3 (4.00-5.60); RDW 13.3 % (11.9-15.9); WHITE BLOOD COUNT 7.4 K/mm3 (4.0-10.0)
[2024-03-13] MEDS: morphine CARPU-JECT 2 MG/1 ML DISP.SYRIN IVPUSH ONE (12:24)
[2024-03-13] MEDS: LACTATED RINGERS SOLUTION 1000 ML INFUS.BAG IV ONE (12:25)
[2024-03-13 12:40] LABS: POTASSIUM 4.3 mmol/L (3.5-5.1)
[2024-03-13 12:42] LABS: CALCIUM 8.4 mg/dL (8.5-10.1)
[2024-03-13 12:43] LABS: ALBUMIN 3.1 g/dl (3.4-5.0); BLOOD UREA NITROGEN 19.3 mg/dL (7-18)
[2024-03-13 12:47] LABS: BILIRUBIN,TOTAL 0.6 mg/dL (0.2-1); TOT PROT 6.3 g/dl (6.4-8.2)
[2024-03-13 13:36] LABS: EPI CELLS 2 /uL (0-25.1); HYALINE CASTS 0 /uL (0-3.1); URINE BACTERIA 1 /uL (0-1359); URINE RBC 500 /uL (0-23.9); URINE WBC 1 /uL (0-25.8)
[2024-03-13 13:37] LABS: YEAST NONE SEEN (NEGATIVE)
[2024-03-13] MEDS: SODIUM CHLORIDE 0.9% 500 ML INFUS.BAG IV ONE (13:59)
[2024-03-13] MEDS: SODIUM CHLORIDE 1,000 ML IV SCH (14:27)
[2024-03-13 15:21] LABS: POTASSIUM 4.4 mmol/L (3.5-5.1)
[2024-03-13 15:24] LABS: BLOOD UREA NITROGEN 17.8 mg/dL (7-18)
[2024-03-13 15:27] LABS: CREATININE 0.9 mg/dL (0.55-1.3)
[2024-03-13] MEDS: SODIUM CHLORIDE 0.45% 1,000 ML IV SCH (16:14)
[2024-03-13 17:40] VITALS: BMI 26.0
[2024-03-13 20:55] LABS: CALCIUM 8.5 mg/dL (8.5-10.1)
[2024-03-13 20:56] LABS: BLOOD UREA NITROGEN 14.2 mg/dL (7-18)
[2024-03-13 20:58] LABS: CREATININE 0.8 mg/dL (0.55-1.3)
[2024-03-13 21:01] VITALS: RESP 18
[2024-03-13] MEDS: HEPARIN NA (PORCINE) 5,000 UNITS/ML 1ML VIAL SQ SCH (21:25)
[2024-03-14 08:18] LABS: HEMATOCRIT 30.8 % (35.4-49); HEMOGLOBIN 10.5 GM/dL (11.7-16.9); MCH 30.2 pg (25.7-33.7); MCHC 34.2 g/dl (32.0-35.9); MEAN CELL VOLUME 88.3 fl (80-96); MEAN PLT VOLUME 7.7 fl (7.5-11.1); PLATELET COUNT 176 10^3/uL (134-434); RBC 3.49 M/mm3 (4.00-5.60); RDW 13.7 % (11.9-15.9)
[2024-03-14 09:12] LABS: POTASSIUM 4.3 mmol/L (3.5-5.1)
[2024-03-14 09:14] LABS: CALCIUM 8.3 mg/dL (8.5-10.1)
[2024-03-14 09:15] LABS: ALBUMIN 2.6 g/dl (3.4-5.0); BLOOD UREA NITROGEN 13.5 mg/dL (7-18); MAGNESIUM 2.3 mg/dL (1.8-2.4)
[2024-03-14 09:17] LABS: CREATININE 0.9 mg/dL (0.55-1.3)
[2024-03-14 09:18] LABS: BILIRUBIN,TOTAL 0.5 mg/dL (0.2-1); PHOSPHOROUS 4.1 mg/dL (2.5-4.9); TOT PROT 5.4 g/dl (6.4-8.2)
[2024-03-14] MEDS: VALSARTAN 80 MG TABLET PO SCH (10:02)
[2024-03-14] MEDS: PATIENT'S OWN MEDICATION (NON-FORMULARY) (Relugolix [Orgovyx] 120 MG Tablet) PO SCH (10:02)
[2024-03-14] MEDS: DUTASTERIDE 0.5 MG CAP (FP) PO SCH (10:02)
[2024-03-14] MEDS: ACETAMINOPHEN 325 MG TABLET (FP) PO PRN (11:09)
[2024-03-14] MEDS ORDERED: ACETAMINOPHEN 325 MG TABLET (FP) PO PRN (12:10)
[2024-03-14] MEDS: POLYETHYLENE GLYCOL (HEALTHYLAX) 3350 17 GM PACKET PO ONE (12:13)
[2024-03-14] MEDS ORDERED: oxyCODONE HCL 5 MG TABLET PO PRN (12:23)
[2024-03-14] MEDS: SIMETHICONE 80 MG TAB.CHEW (FP) PO PRN (16:52)
[2024-03-14] MEDS ORDERED: DOCUSATE SODIUM 100 MG CAPSULE (FP) PO PRN (17:15)
[2024-03-14] MEDS: DOCUSATE SODIUM 100 MG CAPSULE (FP) PO SCH (18:02)
[2024-03-15 08:15] LABS: BASO % 0.6 % (0-2.0); EOS % 7.5 % (0-4.5); HEMATOCRIT 32.2 % (35.4-49); HEMOGLOBIN 10.9 GM/dL (11.7-16.9); LYMPH % 28.5 % (8-40); MCH 30.3 pg (25.7-33.7); MEAN CELL VOLUME 89.3 fl (80-96); MEAN PLT VOLUME 7.2 fl (7.5-11.1); MONO % 15.4 % (3.8-10.2); PLATELET COUNT 192 10^3/uL (134-434); RDW 13.8 % (11.9-15.9); WHITE BLOOD COUNT 4.8 K/mm3 (4.0-10.0)
[2024-03-15 08:36] LABS: POTASSIUM 4.6 mmol/L (3.5-5.1)
[2024-03-15 08:37] LABS: ALBUMIN 2.7 g/dl (3.4-5.0); CALCIUM 8.7 mg/dL (8.5-10.1); MAGNESIUM 2.1 mg/dL (1.8-2.4)
[2024-03-15 08:41] LABS: CREATININE 0.8 mg/dL (0.55-1.3)
[2024-03-15 08:43] LABS: BILIRUBIN,TOTAL 0.6 mg/dL (0.2-1); TOT PROT 5.9 g/dl (6.4-8.2)
[2024-03-15] MEDS: POLYETHYLENE GLYCOL (HEALTHYLAX) 3350 17 GM PACKET PO SCH (09:26)
[2024-03-15 14:56] VITALS: BP 125/74; PULSE 79; TEMP 98.4
[2024-03-15] MEDS: BISACODYL 10 MG SUPP.RECT PR PRN (15:12)
== END 2024-03-15 17:01 | disposition home or self-care (01) ==
LOC: JER 10:47 → JERBED 16:02 → J7W 17:05
PROVIDERS: ADMIT Internal Medicine; ATTEND Nurse Practitioner Family
PROC: 0T9B70Z Drainage of Bladder with Drainage Device, Via Natural or Artificial Opening (ICD-10-PCS; principal; 2024-03-13)
PROC: 3E023GC Introduction of Other Therapeutic Substance into Muscle, Percutaneous Approach (ICD-10-PCS; 2024-03-13)
PROC: 3E0337Z Introduction of Electrolytic and Water Balance Substance into Peripheral Vein, Percutaneous Approach (ICD-10-PCS; 2024-03-13)
PROC: 3E033NZ Introduction of Analgesics, Hypnotics, Sedatives into Peripheral Vein, Percutaneous Approach (ICD-10-PCS; 2024-03-13)
DX: T81.9XXA Unspecified complication of procedure, initial encounter (principal); X58.XXXA Exposure to other specified factors, initial encounter; Y99.8 Other external cause status; R33.9 Retention of urine, unspecified; C61 Malignant neoplasm of prostate; I10 Essential (primary) hypertension; E87.1 Hypo-osmolality and hyponatremia; Z29.89 Encounter for other specified prophylactic measures; N50.89 Other specified disorders of the male genital organs; Z96.651 Presence of right artificial knee joint
CPT/HCPCS: 36415; 51702; 74018-TC-FY; 76870-TC; 80048; 80053; 81003; 83735; 84100; 85025; 85027; 87086; 93005; 93010; 96361; 96372; 96374; 99285-25; G0378; J1644

== ENCOUNTER 2024-03-20 00:02 | Emergency (ER) | payer OTHER ==
[2024-03-20 00:09] VITALS: BP 174/91; PULSE 98; RESP 18; TEMP 98.4; BMI 27.4
[2024-03-20 02:04] LABS: EPI CELLS 1 /uL (0-25.1); HYALINE CASTS 0 /uL (0-3.1); PH,URINE 6.5 (5.0-8.0); URINE APPEARANCE CLEAR; URINE BACTERIA 4 /uL (0-1359); URINE BILIRUBIN NEGATIVE (NEGATIVE); URINE COLOR YELLOW; URINE GLUCOSE (UA) NEGATIVE (NEGATIVE); URINE KETONE NEGATIVE (NEGATIVE); URINE LEUK ESTERASE NEGATIVE (NEGATIVE); URINE NITRITE NEGATIVE (NEGATIVE); URINE PROTEIN TRACE (NEGATIVE); URINE RBC 444 /uL (0-23.9); URINE UROBILINOGEN 0.2 mg/dL (0.2-1.0); URINE WBC 4 /uL (0-25.8)
== END 2024-03-20 02:21 | disposition home or self-care (01) ==
LOC: JER 00:02
DX: R33.9 Retention of urine, unspecified (principal)
CPT/HCPCS: 81003; 87086; 99283-25